=== PATIENT | male | born 1990 | race Caucasian/White ===

== ENCOUNTER 2019-07-23 21:10 | Emergency (ER) | payer OTHER ==
[~2019-07-23] VITALS: Ht 172.7 cm; Wt 113.4 kg
[2019-07-23 21:10] VITALS: BP 151/86
[2019-07-23] MEDS ORDERED: CYCLOBENZAPRINE 10 MG TABLET. PO ONE (22:00)
[2019-07-23] MEDS ORDERED: HYDROcodone/APAP 5/325MG 1 TAB TABLET PO ONE (22:00)
[2019-07-23] MEDS ORDERED: DIPHTH,PERTUSS(ACELL),TET TOX 0.5 ML DISP.SYRIN. VAX IM ONE (22:00)
--- NOTE | 2019-07-23 22:23 | RAD ---
STUDY: 1. CT head without contrast 2. CT maxillofacial without contrast INDICATION: Facial trauma. COMPARISON: None. TECHNIQUE: Axial CT imaging of the head as well as the maxillofacial structures performed without the use of intravenous contrast. Coronal and sagittal reformats were obtained through the face. One or more of the following individualized dose reduction techniques were utilized for this examination: 1. Automated exposure control 2. Adjustment of the mA and/or kV according to patient size 3. Use of iterative reconstruction technique. FINDINGS: CT HEAD: Velázquez-white matter differentiation is maintained. No mass effect, midline shift or hydrocephalus. No acute intracranial hemorrhage. No depressed calvarial fracture. CT maxillofacial: No acute facial bone fracture. The visualized skull base is intact. Unremarkable osseous orbits. The visualized cervical spine is intact. Findings of contusive injury to the soft tissues overlying the right slightly more so than left superior orbital rims as well as extending along the nasal bridge also on the right more so than left. Mild asymmetric soft tissue prominence along the left zygoma. The globes are symmetric. No extraocular muscle hematoma or retrobulbar fatty stranding. No layering fluid within the paranasal sinuses. Unremarkable deep spaces of the visualized neck. IMPRESSION: CT HEAD: 1. No acute intracranial abnormality. CT maxillofacial: 1. No acute fracture. 2. Findings of contusive injury to the upper aspect of the face most pronounced overlying the superior orbital rims and extending along the nasal bridge. No evidence for injury to the globes or retrobulbar soft tissues. Electronically signed by: CHRISTIANO LAWRENCE MD (07/23/2019 10:21 PM) [facility]
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
== END 2019-07-23 22:48 | disposition home or self-care (01) ==
LOC: ER 21:10
DX: S00.83XA Contusion of other part of head, initial encounter (principal); R51 Headache; J45.909 Unspecified asthma, uncomplicated; Z88.0 Allergy status to penicillin; Y04.0XXA Assault by unarmed brawl or fight, initial encounter; Y93.89 Activity, other specified; Y92.488 Other paved roadways as the place of occurrence of the external cause; Y99.8 Other external cause status
CPT/HCPCS: 70450; 70486; 90471; 90715; 99284-25